=== PATIENT | male | born 1960 | race Caucasian/White ===

== ENCOUNTER 2017-04-02 09:43 | Emergency (ER) | payer OTHER ==
[~2017-04-02] VITALS: Ht 182.9 cm; Wt 97.5 kg
[2017-04-02 10:43] VITALS: BP 156/100
== END 2017-04-02 11:31 | disposition home or self-care (01) ==
LOC: ER 09:43
DX: S01.01XA Laceration without foreign body of scalp, initial encounter (principal); W22.8XXA Striking against or struck by other objects, initial encounter; Y93.89 Activity, other specified; Y99.8 Other external cause status; Y92.89 Other specified places as the place of occurrence of the external cause
CPT/HCPCS: 12002